=== PATIENT | female | born 1990 | race Caucasian/White ===

== ENCOUNTER → 2022-03-15 08:46 | Outpatient (CLI) | payer BC, SELFPAY ==
--- NOTE | ~2022-03-15 | US_ITS ---
US axilla RT 03/15/2022 09:09 Indication: Right axillary pain and palpable lump Procedure: High-resolution ultrasound of the right axilla Comparison: No prior studies for comparison. Findings: There are normal-appearing lymph nodes in the area of palpable concern. Both lymph nodes co ntain normal fatty hilum. Both lymph nodes measure 1.3 cm greatest dimension. No abnormal fluid colle ctions or suspicious masses. Impression: 1: Normal-appearing right axillary lymph nodes corresponding to the area of palpable concern, most li lea reactive. Reviewed, dictated and finalized at location A. [facility] [employer] Impression: 1: Normal-appearing right axillary lymph nodes corresponding to the area of pal pable concern, most likely reactive.
== END ==
PROVIDERS: PCP Family Medicine Adolescent Medicine; Visit Provider Advanced Practice Midwife
DX: M79.629 Pain in unspecified upper arm (principal)
CPT/HCPCS: 76882

== ENCOUNTER 2022-05-03 09:58 | Outpatient (RCR) | payer BC, SELFPAY ==
[2022-05-03 10:54] VITALS: BP 127/71; PULSE 84
== END 2022-08-01 23:59 | disposition home or self-care (01) ==
LOC: ANHOBOP 09:58
PROVIDERS: PCP Family Medicine Adolescent Medicine; Visit Provider Obstetrics & Gynecology
DX: O36.8120 Decreased fetal movements, second trimester, not applicable or unspecified (principal); Z3A.26 26 weeks gestation of pregnancy
CPT/HCPCS: 59025